=== PATIENT | female | born 1985 | race Caucasian/White ===

== ENCOUNTER 2017-09-24 19:21 | Emergency (ER) | payer MEDICAID ==
[~2017-09-24] VITALS: Ht 167.6 cm; Wt 127.0 kg
[~2017-09-24 19:21] MED LIST: BUPR1FIL3 SL; DIVA-81 PO; LURA40TA3 PO; QUET300T2 PO
[2017-09-24] MEDS ORDERED: PRAZ1CAP5 PO (19:57)
[2017-09-24 20:13] LABS: BASOPHILS # (AUTO) 0.1 X10'3 (0-0.2); BASOPHILS % (AUTO) 0.5 % (0-1); EOSINOPHILS # (AUTO) 0.4 X10'3 (0-0.9); HEMATOCRIT 42.5 % (35.0-45.0); HEMOGLOBIN 14.3 g/dl (12.0-16.0); LYMPHOCYTES # (AUTO) 3.1 X10'3 (1.1-4.8); LYMPHOCYTES % (AUTO) 26.6 % (21-51); MEAN CORPUSCULAR HEMOGLOBIN 30.3 PG (27.0-31.0); MEAN CORPUSCULAR HGB CONC 33.6 % (33.0-36.5); MEAN CORPUSCULAR VOLUME 90.2 FL (78-98); MEAN PLATELET VOLUME 8.8 FL (7.4-10.4); MONOCYTES # (AUTO) 0.8 X10'3 (0-0.9); MONOCYTES % (AUTO) 6.5 % (2-12); NEUTROPHILS # (AUTO) 7.5 X10'3 (1.8-7.7); NEUTROPHILS % (AUTO) 63.4 % (42-75); PLATELET COUNT 323 X10'3 (140-440); RED BLOOD COUNT 4.71 X10'6 (4.20-5.60); RED CELL DISTRIBUTION WIDTH 16.6 % (11.5-14.5); WHITE BLOOD COUNT 11.8 X10'3 (4.5-11.0)
[2017-09-24 20:27] LABS: ALANINE AMINOTRANSFERASE 41 U/L (12-78); ALBUMIN 3.5 G/DL (3.4-5.0); ALKALINE PHOSPHATASE 79 IU/L (46-116); ANION GAP 6 (8-16); ASPARTATE AMINO TRANSFERASE 24 U/L (10-37); BILIRUBIN,TOTAL 0.3 MG/DL (0.1-1.0); BLOOD UREA NITROGEN 8 MG/DL (7-18); BUN/CREATININE RATIO 10.8 (6.6-38.0); CALCIUM 9.1 MG/DL (8.5-10.1); CHLORIDE 108 MMOL/L (99-107); CREATININE 0.74 MG/DL (0.40-0.90); GLUCOSE 99 MG/DL (70-104); POTASSIUM 3.7 MMOL/L (3.5-5.1); SODIUM 140 MMOL/L (135-145); TOTAL CARBON DIOXIDE 26.4 MMOL/L (24-32); eGFR 90 ML/MIN
[2017-09-24 20:38] LABS: ETHANOL < 0.010 GM/DL (0.0-0.010)
[2017-09-24 20:48] LABS: URINE AMPHETAMINE SCREEN NEGATIVE (Neg); URINE BARBITUATE SCREEN NEGATIVE (Neg); URINE BENZODIAZEPINES SCREEN NEGATIVE (Neg); URINE CANNABINOID SCREEN POSITIVE (Neg); URINE COCAINE SCREEN NEGATIVE (Neg); URINE METHADONE SCREEN NEGATIVE (Neg); URINE OPIATE SCREEN NEGATIVE (Neg); URINE PHENCYCLIDINE SCREEN NEGATIVE (Neg)
[2017-09-24] MEDS ORDERED: divalproex sodium 250mg tablet PO ONE ×2 (20:50→21:30)
[2017-09-24] MEDS ORDERED: DIVA500T4 PO (20:50)
[2017-09-24] MEDS ORDERED: lurasidone 20mg tablet PO SCH (21:00)
[2017-09-24 21:10] LABS: URINE HCG NEGATIVE (NEG)
[2017-09-24 21:18] LABS: VALPROATE < 3.0 UG/ML (50-100)
[2017-09-24] MEDS: prazosin 1mg capsule PO SCH (21:51)
[2017-09-25] MEDS ORDERED: ziprasidone IM 20mg inj **IM only IM ONE (01:40)
[2017-09-25] MEDS ORDERED: divalproex sodium 250mg tablet PO ONE (08:00)
[2017-09-25] MEDS ORDERED: buprenorphine/naloxone 8MG-2MG SUBlingual film SL SCH ×2 (08:00→09:01)
[2017-09-25] MEDS: divalproex sod 250mg ER (24-hour) tablet PO SCH (09:01)
[2017-09-25] MEDS: buprenorphine/naloxone 8MG-2MG SUBlingual film SL SCH ×2 (09:01→16:05)
[2017-09-25] MEDS ORDERED: nicotine 14mg patch - 24hr TD ONE (09:55)
[2017-09-25 13:54] LABS: CLARITY,URINE CLEAR (Clear); COLOR,URINE YELLOW (Yellow); GLUCOSE, URINE NEGATIVE (Neg); KETONES,URINE TRACE mg/dl (Neg); LEUKOCYTE ESTERASE ,URINE NEGATIVE (Neg); NITRITES, URINE NEGATIVE (Neg); OCCULT BLOOD,URINE NEGATIVE (Neg); PH,URINE 7.5 (4.8-8.0); PROTEIN,URINE NEGATIVE (Neg)
[2017-09-25 13:59] LABS: UA COLLECTION TYPE CLN CATCH MIDSTREAM
[2017-09-25] MEDS: prazosin 1mg capsule PO SCH (21:14)
[2017-09-25] MEDS: LATUDA 40 MG PO SCH (21:14)
[2017-09-26] MEDS: buprenorphine/naloxone 8MG-2MG SUBlingual film SL SCH ×3 (00:02→16:35)
[2017-09-26] MEDS: divalproex sod 250mg ER (24-hour) tablet PO SCH (07:43)
[2017-09-26] MEDS ORDERED: nicotine 14mg patch - 24hr TD ONE (10:20)
[2017-09-26] MEDS: prazosin 1mg capsule PO SCH (20:56)
[2017-09-26] MEDS: LATUDA 40 MG PO SCH (20:57)
[2017-09-27] MEDS: buprenorphine/naloxone 8MG-2MG SUBlingual film SL SCH ×3 (08:00→14:57)
[2017-09-27] MEDS: divalproex sod 250mg ER (24-hour) tablet PO SCH (08:28)
[2017-09-27] MEDS: nicotine 21mg patch - 24 hr TD ONE ×2 (10:08→10:09)
[2017-09-27] MEDS ORDERED: LORazepam 2 mg/ml vial IM ONE (13:55)
[2017-09-27] MEDS ORDERED: LORazepam 2 mg/ml vial IM PRN (14:05)
[2017-09-27] MEDS: prazosin 1mg capsule PO SCH (21:21)
[2017-09-27] MEDS: LATUDA 40 MG PO SCH (21:22)
[2017-09-28] MEDS: buprenorphine/naloxone 8MG-2MG SUBlingual film SL SCH ×3 (08:00→16:00)
[2017-09-28] MEDS: divalproex sod 250mg ER (24-hour) tablet PO SCH (08:20)
[2017-09-28] MEDS: prazosin 1mg capsule PO SCH (20:49)
[2017-09-28] MEDS: LATUDA 20 MG PO SCH (20:50)
[2017-09-29] MEDS ORDERED: nicotine 21mg patch - 24 hr TD ONE (00:15)
[2017-09-29] MEDS: buprenorphine/naloxone 8MG-2MG SUBlingual film SL SCH ×2 (08:00)
[2017-09-29] MEDS: divalproex sod 250mg ER (24-hour) tablet PO SCH ×2 (08:22→21:51)
[2017-09-29] MEDS ORDERED: ibuprofen tablet 400 MG TABLET PO ONE (09:00)
[2017-09-29] MEDS: ibuprofen tablet 400 MG TABLET PO PRN ×2 (12:47→21:53)
[2017-09-29] MEDS: LATUDA 20 MG PO SCH (21:00)
[2017-09-29] MEDS: prazosin 1mg capsule PO SCH (21:51)
[2017-09-29] MEDS ORDERED: ondansetron 4mg rapidly disintigrating tab PO ONE (22:55)
[2017-09-30] MEDS: ibuprofen tablet 400 MG TABLET PO PRN (10:44)
[2017-09-30] MEDS ORDERED: DIVA500T9 PO (16:16)
[2017-09-30 16:24] VITALS: BP 116/74
== END 2017-09-30 16:26 | disposition home or self-care (01) ==
LOC: ER 19:22
DX: F29 Unspecified psychosis not due to a substance or known physiological condition (principal); F32.9 Major depressive disorder, single episode, unspecified; F20.9 Schizophrenia, unspecified; F12.10 Cannabis abuse, uncomplicated; F15.10 Other stimulant abuse, uncomplicated; F41.9 Anxiety disorder, unspecified; M19.90 Unspecified osteoarthritis, unspecified site; Z79.899 Other long term (current) drug therapy; Z88.0 Allergy status to penicillin
CPT/HCPCS: 36415; 80053; 80164; 80305; 80320; 81003; 81025; 84443; 85025; 96372; 99284; J3486

== ENCOUNTER 2017-10-05 13:35 | Emergency (ER) | payer MEDICAID ==
[~2017-10-05] VITALS: Ht 185550.7 cm; Wt 95.5 kg
[~2017-10-05 13:35] MED LIST changes: -DIVA-81 PO; +DIVA500T4 PO; +DIVA500T9 PO; +PRAZ1CAP5 PO; -QUET300T2 PO
[2017-10-05 15:10] LABS: BASOPHILS # (AUTO) 0.3 X10'3 (0-0.2); BASOPHILS % (AUTO) 1.6 % (0-1); EOSINOPHILS # (AUTO) 0.1 X10'3 (0-0.9); EOSINOPHILS % (AUTO) 0.8 % (0-6); HEMATOCRIT 46.8 % (35.0-45.0); HEMOGLOBIN 15.9 g/dl (12.0-16.0); LYMPHOCYTES % (AUTO) 17.2 % (21-51); MEAN CORPUSCULAR HEMOGLOBIN 30.3 PG (27.0-31.0); MEAN CORPUSCULAR HGB CONC 33.9 % (33.0-36.5); MEAN CORPUSCULAR VOLUME 89.4 FL (78-98); MEAN PLATELET VOLUME 8.9 FL (7.4-10.4); MONOCYTES % (AUTO) 5.8 % (2-12); NEUTROPHILS % (AUTO) 74.6 % (42-75); PLATELET COUNT 443 X10'3 (140-440); RED BLOOD COUNT 5.23 X10'6 (4.20-5.60); RED CELL DISTRIBUTION WIDTH 14.7 % (11.5-14.5); WHITE BLOOD COUNT 17.4 X10'3 (4.5-11.0)
[2017-10-05 15:26] LABS: ALANINE AMINOTRANSFERASE 30 U/L (12-78); ALKALINE PHOSPHATASE 107 IU/L (46-116); ANION GAP 11 (8-16); ASPARTATE AMINO TRANSFERASE 12 U/L (10-37); BILIRUBIN,TOTAL 0.5 MG/DL (0.1-1.0); BLOOD UREA NITROGEN 10 MG/DL (7-18); BUN/CREATININE RATIO 14.3 (6.6-38.0); CALCIUM 9.8 MG/DL (8.5-10.1); CHLORIDE 104 MMOL/L (99-107); ETHANOL < 0.010 GM/DL (0.0-0.010); GLUCOSE 108 MG/DL (70-104); POTASSIUM 3.8 MMOL/L (3.5-5.1); SODIUM 139 MMOL/L (135-145); TOTAL CARBON DIOXIDE 24.3 MMOL/L (24-32); TOTAL PROTEIN 8.2 G/DL (6.4-8.2); eGFR > 90 ML/MIN
[2017-10-05] MEDS ORDERED: LORazepam 2 mg/ml vial IM ONE ×2 (17:35→20:55)
[2017-10-05] MEDS ORDERED: haloperidol lactate 5mg/ml inj IM ONE ×2 (17:35→20:55)
[2017-10-05] MEDS ORDERED: diphenhydrAMINE 50 mg/ml inj IM ONE ×2 (17:35→20:55)
[2017-10-05] MEDS: quetiapine 100mg tablet PO SCH ×2 (21:50→23:05)
[2017-10-05] MEDS ORDERED: nicotine 14mg patch - 24hr TD ONE (21:50)
[2017-10-06 07:56] LABS: CLARITY,URINE CLOUDY (Clear); COLOR,URINE YELLOW (Yellow); GLUCOSE, URINE NEGATIVE (Neg); KETONES,URINE TRACE mg/dl (Neg); LEUKOCYTE ESTERASE ,URINE NEGATIVE (Neg); NITRITES, URINE NEGATIVE (Neg); OCCULT BLOOD,URINE LARGE (Neg); PROTEIN,URINE TRACE mg/dl (Neg); UA COLLECTION TYPE VOIDED; UROBILINOGEN,URINE 0.2 E.U/dL (0.2-1.0)
[2017-10-06 07:57] LABS: URINE HCG NEGATIVE (NEG)
[2017-10-06 08:17] LABS: URINE AMPHETAMINE SCREEN NEGATIVE (Neg); URINE BARBITUATE SCREEN NEGATIVE (Neg); URINE BENZODIAZEPINES SCREEN NEGATIVE (Neg); URINE CANNABINOID SCREEN POSITIVE (Neg); URINE COCAINE SCREEN NEGATIVE (Neg); URINE METHADONE SCREEN NEGATIVE (Neg); URINE OPIATE SCREEN NEGATIVE (Neg); URINE PHENCYCLIDINE SCREEN NEGATIVE (Neg); WBC,URINE 0-4 /HPF (0-4)
[2017-10-06 08:18] LABS: BACTERIA,URINE NONE SEEN /HPF (Neg); MUCUS STRANDS MANY /LPF (Neg); RBC,URINE 50-100 /HPF (0-2); SQUAMOUS EPITHELIAL CELL,UR FEW /LPF (FEW)
[2017-10-06] MEDS ORDERED: INVEGA SUSTENA IM (08:18)
[2017-10-06 08:19] LABS: HYALINE CASTS 0-3 /LPF (NEGATIVE)
[2017-10-06] MEDS ORDERED: haloperidol 1mg tablet PO PRN (09:45)
[2017-10-06] MEDS: divalproex sod 250mg ER (24-hour) tablet PO SCH (10:01)
[2017-10-06] MEDS ORDERED: haloperidol 5mg tablet PO ONE (12:45)
[2017-10-06] MEDS ORDERED: LORazepam 1 MG tablet PO ONE (12:45)
[2017-10-06] MEDS ORDERED: diphenhydrAMINE 25mg capsule PO ONE ×2 (12:45→20:00)
[2017-10-06 13:08] LABS: BASOPHILS # (AUTO) 0.1 X10'3 (0-0.2); BASOPHILS % (AUTO) 0.4 % (0-1); EOSINOPHILS # (AUTO) 0.1 X10'3 (0-0.9); EOSINOPHILS % (AUTO) 0.6 % (0-6); HEMATOCRIT 44.3 % (35.0-45.0); HEMOGLOBIN 15.5 g/dl (12.0-16.0); LYMPHOCYTES # (AUTO) 2.7 X10'3 (1.1-4.8); LYMPHOCYTES % (AUTO) 16.6 % (21-51); MEAN CORPUSCULAR HEMOGLOBIN 30.9 PG (27.0-31.0); MEAN CORPUSCULAR VOLUME 88.1 FL (78-98); MEAN PLATELET VOLUME 8.6 FL (7.4-10.4); MONOCYTES # (AUTO) 0.6 X10'3 (0-0.9); MONOCYTES % (AUTO) 3.7 % (2-12); NEUTROPHILS # (AUTO) 12.6 X10'3 (1.8-7.7); NEUTROPHILS % (AUTO) 78.7 % (42-75); PLATELET COUNT 373 X10'3 (140-440); RED BLOOD COUNT 5.03 X10'6 (4.20-5.60); RED CELL DISTRIBUTION WIDTH 15.5 % (11.5-14.5)
[2017-10-06 14:21] LABS: TOTAL CELLS COUNTED 100
[2017-10-06 14:22] LABS: PLATELET ESTIMATE NORMAL
[2017-10-06 14:23] LABS: TOXIC GRANULATION 3+; TOXIC VACUOLATION FEW
[2017-10-06] MEDS: haloperidol 5mg tablet PO SCH (19:08)
[2017-10-06] MEDS: LORazepam 1 MG tablet PO SCH (19:09)
[2017-10-06] MEDS ORDERED: diphenhydrAMINE 50 mg/ml inj IM ONE (19:50)
[2017-10-07] MEDS: haloperidol 5mg tablet PO SCH (08:00)
[2017-10-07] MEDS: LORazepam 1 MG tablet PO SCH (08:09)
[2017-10-07] MEDS: divalproex sod 250mg ER (24-hour) tablet PO SCH (08:10)
[2017-10-07] MEDS ORDERED: divalproex sod 250mg ER (24-hour) tablet PO SCH (08:30)
[2017-10-07] MEDS ORDERED: diphenhydrAMINE 50 mg/ml inj IM ONE (12:45)
[2017-10-07 18:25] VITALS: BP 145/86
== END 2017-10-07 18:27 ==
LOC: ER 13:35
DX: F30.9 Manic episode, unspecified (principal); F20.9 Schizophrenia, unspecified; M19.90 Unspecified osteoarthritis, unspecified site; F12.10 Cannabis abuse, uncomplicated; F15.10 Other stimulant abuse, uncomplicated; Z88.0 Allergy status to penicillin; Z79.899 Other long term (current) drug therapy
CPT/HCPCS: 36415; 80053; 80305; 80320; 81001; 81025; 84443; 85025; 96372; 99291; 99292; J1200; J1630; J2060; Q0163

== ENCOUNTER 2020-12-04 16:41 | Emergency (ER) | payer MEDICAID ==
[~2020-12-04] VITALS: Ht 167.6 cm; Wt 136.4 kg
[~2020-12-04 16:41] MED LIST changes: -BUPR1FIL3 SL; -DIVA500T4 PO; -DIVA500T9 PO; +INVEGA SUSTENA IM; -PRAZ1CAP5 PO
[2020-12-04] MEDS ORDERED: BUPR1FIL3 SL (17:41)
[2020-12-04 17:58] LABS: BASOPHILS # (AUTO) 0.1 X10'3 (0-0.2); BASOPHILS % (AUTO) 0.4 % (0-1); EOSINOPHILS # (AUTO) 0.1 X10'3 (0-0.9); EOSINOPHILS % (AUTO) 0.5 % (0-6); HEMATOCRIT 43.6 % (35.0-45.0); HEMOGLOBIN 14.1 g/dl (12.0-16.0); LYMPHOCYTES # (AUTO) 2.2 X10'3 (1.1-4.8); LYMPHOCYTES % (AUTO) 12.9 % (21-51); MEAN CORPUSCULAR HEMOGLOBIN 28.5 PG (27.0-31.0); MEAN CORPUSCULAR HGB CONC 32.3 g/dL (33.0-36.5); MEAN CORPUSCULAR VOLUME 88.3 FL (78-98); MEAN PLATELET VOLUME 7.7 FL (7.4-10.4); MONOCYTES # (AUTO) 1.1 X10'3 (0-0.9); MONOCYTES % (AUTO) 6.7 % (2-12); NEUTROPHILS # (AUTO) 13.5 X10'3 (1.8-7.7); NEUTROPHILS % (AUTO) 79.5 % (42-75); PLATELET COUNT 431 X10'3 (140-440); RED BLOOD COUNT 4.94 X10'6 (4.20-5.60); RED CELL DISTRIBUTION WIDTH 15.4 % (11.5-14.5)
[2020-12-04 18:03] LABS: CLARITY,URINE CLEAR (Clear); COLOR,URINE YELLOW (Yellow); GLUCOSE, URINE NEGATIVE (Neg); KETONES,URINE NEGATIVE (Neg); LEUKOCYTE ESTERASE ,URINE NEGATIVE (Neg); NITRITES, URINE NEGATIVE (Neg); OCCULT BLOOD,URINE NEGATIVE (Neg); PROTEIN,URINE NEGATIVE (Neg); UROBILINOGEN,URINE 0.2 E.U/dL (0.2-1.0)
[2020-12-04 18:04] LABS: UA COLLECTION TYPE CLN CATCH MIDSTREAM
[2020-12-04 18:10] LABS: ALANINE AMINOTRANSFERASE 22 U/L (12-78); ALBUMIN 3.7 G/DL (3.4-5.0); ALBUMIN/GLOBULIN RATIO 0.9 (1.1-1.5); ALKALINE PHOSPHATASE 100 IU/L (46-116); ANION GAP 12 (8-16); ASPARTATE AMINO TRANSFERASE 14 U/L (10-37); BILIRUBIN,TOTAL 0.2 MG/DL (0.1-1.0); BLOOD UREA NITROGEN 6 MG/DL (7-18); BUN/CREATININE RATIO 6.8 (6.6-38.0); CALCIUM 9.7 MG/DL (8.5-10.1); CHLORIDE 103 MMOL/L (99-107); CREATININE 0.88 MG/DL (0.40-0.90); GLUCOSE 126 MG/DL (70-104); POTASSIUM 3.7 MMOL/L (3.5-5.1); SODIUM 139 MMOL/L (135-145); TOTAL CARBON DIOXIDE 24.2 MMOL/L (24-32); eGFR 72 ML/MIN
[2020-12-04 18:10] LABS: URINE AMPHETAMINE SCREEN NEGATIVE (Neg); URINE BARBITUATE SCREEN NEGATIVE (Neg); URINE BENZODIAZEPINES SCREEN NEGATIVE (Neg); URINE CANNABINOID SCREEN NEGATIVE (Neg); URINE COCAINE SCREEN NEGATIVE (Neg); URINE METHADONE SCREEN NEGATIVE (Neg); URINE OPIATE SCREEN NEGATIVE (Neg); URINE PHENCYCLIDINE SCREEN NEGATIVE (Neg)
[2020-12-04 18:12] LABS: URINE HCG NEGATIVE (NEG)
[2020-12-04 18:19] LABS: ETHANOL < 0.010 GM/DL (0.0-0.010)
--- NOTE | 2020-12-05 00:42 | NUR ---
Pt brought back to ER overflow. Pt requests coloring supplies, given crayons and paper.
[2020-12-05] MEDS ORDERED: traZODone 50mg tablet PO ONE (01:40)
--- NOTE | 2020-12-05 02:00 | NUR ---
PT is having trouble sleeping, requests sleeping med. Physician consulted, 50mg trazodone PO given
--- NOTE | 2020-12-05 03:00 | NUR ---
Pt sitting up reading a book
--- NOTE | 2020-12-05 05:35 | NUR ---
PT is sleeping on R side, RR WNL
--- NOTE | 2020-12-05 06:25 | NUR ---
PT AWAKE READING A BOOK. NO NEEDS AT THIS TIME
[2020-12-05] MEDS ORDERED: buprenorphine/naloxone 8MG-2MG SUBlingual film SL SCH (08:00)
--- NOTE | 2020-12-05 09:42 | NUR ---
PT RESTING ON RIGHT SIDE RR EQUAL AND UNLABORED.
--- NOTE | 2020-12-05 11:30 | NUR ---
COVID SWAB DONE.
--- NOTE | 2020-12-05 12:08 | NUR ---
PT CONTINUES RESTING ON RIGHT SIDE RR EQUAL AND UNLABORED.
--- NOTE | 2020-12-05 13:10 | NUR ---
Patient eating lunch. No distress observed. Continue to monitor.
--- NOTE | 2020-12-05 14:18 | NUR ---
PT RESTING ON RIGHT SIDE RR EQUAL AND UNLABORED
--- NOTE | 2020-12-05 15:39 | NUR ---
Patient speaking to mother on the phone. No distress observed. Continue to monitor.
--- NOTE | 2020-12-05 16:55 | NUR ---
Mother came to visit patient and brought markers and books. No distress observed during their visit. Continue to monitor.
--- NOTE | 2020-12-05 18:30 | NUR ---
The patient eating her dinner at the bedside
--- NOTE | 2020-12-05 19:56 | NUR ---
The patient is on her bed. Attempted to engage one to one but the patient kept her eyes closed and have minimal replies. She was reminded that she will be discharged to [facility] possibly tonight or in the AM.
[2020-12-05 21:10] VITALS: BP 145/71
[2020-12-06] MEDS ORDERED: INVEGA SUSTENNA 156 MG IM SCH (08:00)
[2020-12-06] MEDS ORDERED: nicotine 21mg patch - 24 hr TD SCH (08:00)
== END 2020-12-05 21:12 ==
LOC: ER 16:41
DX: D72.829 Elevated white blood cell count, unspecified (principal); F20.9 Schizophrenia, unspecified; Z20.822 Contact with and (suspected) exposure to COVID-19; M19.90 Unspecified osteoarthritis, unspecified site; F32.9 Major depressive disorder, single episode, unspecified; F12.90 Cannabis use, unspecified, uncomplicated; F15.90 Other stimulant use, unspecified, uncomplicated; Z98.890 Other specified postprocedural states; Z88.0 Allergy status to penicillin; Z88.8 Allergy status to other drugs, medicaments and biological substances; Z79.899 Other long term (current) drug therapy
CPT/HCPCS: 36415; 80053; 80305; 80320; 81003; 81025; 84443; 85025; 87635; 99285; C9803

== ENCOUNTER 2024-06-02 15:50 | Inpatient (IN) | payer MEDICAID ==
[~2024-06-02] VITALS: Ht 167.6 cm; Wt 138.4 kg
[~2024-06-02 15:50] MED LIST changes: +BUPR1FIL3 SL; -LURA40TA3 PO
[2024-06-02] MEDS ORDERED: LISI20TA28 PO (16:18)
[2024-06-02] MEDS ORDERED: PALI6TAB6 PO (16:18)
[2024-06-02] MEDS ORDERED: HYDR50TA65 PO (16:18)
[2024-06-02 17:15] LABS: URINE AMPHETAMINE SCREEN NEGATIVE (Neg); URINE BARBITUATE SCREEN NEGATIVE (Neg); URINE BENZODIAZEPINES SCREEN NEGATIVE (Neg); URINE CANNABINOID SCREEN NEGATIVE (Neg); URINE COCAINE SCREEN NEGATIVE (Neg); URINE METHADONE SCREEN NEGATIVE (Neg); URINE OPIATE SCREEN NEGATIVE (Neg); URINE PHENCYCLIDINE SCREEN NEGATIVE (Neg)
[2024-06-02] MEDS: normal saline 1000ML IV soln IVB ONE (17:15)
[2024-06-02] MEDS ORDERED: haloperidol lactate 5mg/ml inj IM ONE (17:25)
[2024-06-02] MEDS: LORazepam 2 mg/ml vial IM ONE (17:25)
[2024-06-02] MEDS: diphenhydrAMINE 50 mg/ml inj IM ONE (17:25)
[2024-06-02] MEDS: ziprasidone IM 20mg inj **IM only IM ONE (17:45)
[2024-06-02 17:53] LABS: BASOPHILS # (AUTO) 0.1 X10'3 (0-0.2); BASOPHILS % (AUTO) 0.3 % (0-1); EOSINOPHILS # (AUTO) 0.2 X10'3 (0-0.9); EOSINOPHILS % (AUTO) 0.9 % (0-6); HEMATOCRIT 43.8 % (35.0-45.0); HEMOGLOBIN 14.8 g/dl (12.0-16.0); LYMPHOCYTES # (AUTO) 3.4 X10'3 (1.1-4.8); LYMPHOCYTES % (AUTO) 15.7 % (21-51); MEAN CORPUSCULAR HEMOGLOBIN 30.5 PG (27.0-31.0); MEAN CORPUSCULAR HGB CONC 33.8 g/dL (33.0-36.5); MEAN PLATELET VOLUME 8.1 FL (7.4-10.4); MONOCYTES # (AUTO) 0.9 X10'3 (0-0.9); NEUTROPHILS # (AUTO) 17.1 X10'3 (1.8-7.7); NEUTROPHILS % (AUTO) 79.1 % (42-75); PLATELET COUNT 448 X10'3 (140-440); RED BLOOD COUNT 4.86 X10'6 (4.20-5.60); RED CELL DISTRIBUTION WIDTH 14.5 % (11.5-14.5); WHITE BLOOD COUNT 21.6 X10'3 (4.5-11.0)
[2024-06-02 17:59] LABS: ALBUMIN 3.4 G/DL (3.4-5.0); ANION GAP 9 (8-16); BLOOD UREA NITROGEN 10 MG/DL (7-18); BUN/CREATININE RATIO 14.9 (10.0-20.0); CALCIUM 9.1 MG/DL (8.5-10.1); CHLORIDE 104 MMOL/L (99-107); CREATININE 0.67 MG/DL (0.40-0.90); GLUCOSE 248 MG/DL (70-104); POTASSIUM 4.1 MMOL/L (3.5-5.1); SODIUM 140 MMOL/L (135-145); TOTAL CARBON DIOXIDE 26.7 MMOL/L (24-32); eCRCL 104 ML/MIN; eGFR > 90 ML/MIN
[2024-06-02 18:35] LABS: COLOR,URINE RED (Yellow)
[2024-06-02] MEDS: hyDRALAzine 10mg tablet PO SCH (18:35)
[2024-06-02 18:38] LABS: CLARITY,URINE BLOODY (Clear); UA COLLECTION TYPE VOIDED
[2024-06-02 18:42] LABS: SQUAMOUS EPITHELIAL CELL,UR MANY /LPF (FEW)
[2024-06-02 18:43] LABS: BACTERIA,URINE FEW /HPF (Neg)
[2024-06-02 18:44] LABS: RBC,URINE TNTC /HPF (0-2)
[2024-06-02] MEDS ORDERED: sulfamethoxazole/trimethoprim DS (800/160mg) tablet PO SCH (19:00)
[2024-06-02 20:51] LABS: PLATELET ESTIMATE NORMAL; TOTAL CELLS COUNTED 100
[2024-06-02 20:52] LABS: SMUDGE CELLS FEW
[2024-06-02] MEDS: nicotine 21mg patch - 24 hr TD ONE (23:58)
[2024-06-02] MEDS: sulfamethoxazole/trimethoprim DS (800/160mg) tablet PO SCH (23:59)
[2024-06-02] MEDS: ketorolac trometh 30MG/ML vial 30 MG/ML VIAL IM ONE (23:59)
[2024-06-03] MEDS: lisinopril 20mg tablet PO SCH (08:19)
[2024-06-03] MEDS: buprenorphine/naloxone 8MG-2MG SUBlingual film SL SCH (08:19)
[2024-06-03] MEDS: PALIPERIDONE 3 MG TAB.ER.24 PO SCH (08:20)
[2024-06-05 05:44] VITALS: RESP 18; O2SAT 97
[2024-06-05 06:00] VITALS: BP 131/95; PULSE 106; TEMP 97.1; O2SAT 96
[2024-06-05 07:00] VITALS: RESP 18; O2SAT 95
[2024-06-05] MEDS: divalproex 250mg tablet, delayed-release PO SCH (07:12)
[2024-06-05 08:00] VITALS: BP 107/64; PULSE 93; RESP 18; TEMP 97.7; O2SAT 95
[2024-06-05] MEDS: divalproex sodium 500mg tablet.DR PO SCH (11:58)
[2024-06-05 20:00] VITALS: BP 105/64; PULSE 94; RESP 18; TEMP 97.4; O2SAT 96
[2024-06-06] MEDS ORDERED: acetaminophen 325mg tablet PO PRN (03:45)
[2024-06-06] MEDS ORDERED: mag hydrox/Alum hydrox/simeth 30ml oral suspension PO PRN (03:45)
[2024-06-06] MEDS ORDERED: loperamide 2mg capsule PO PRN (03:45)
[2024-06-06 07:00] VITALS: RESP 16; O2SAT 95
[2024-06-06 08:00] VITALS: BP 155/81; PULSE 89; RESP 16; TEMP 98; O2SAT 95
[2024-06-06] MEDS: nicotine 21mg patch - 24 hr TD SCH (08:13)
[2024-06-06] MEDS: magnesium hydroxide 30ml (MOM) UD suspension PO PRN (08:14)
[2024-06-06 10:32] LABS: ALANINE AMINOTRANSFERASE 47 U/L (12-78); ALBUMIN 3.3 G/DL (3.4-5.0); ALBUMIN/GLOBULIN RATIO 0.8 (1.1-1.5); ALKALINE PHOSPHATASE 104 IU/L (46-116); ANION GAP 7 (8-16); ASPARTATE AMINO TRANSFERASE 18 U/L (10-37); BILIRUBIN,TOTAL 0.5 MG/DL (0.1-1.0); BLOOD UREA NITROGEN 9 MG/DL (7-18); BUN/CREATININE RATIO 14.3 (10.0-20.0); CALCIUM 9.2 MG/DL (8.5-10.1); CHLORIDE 103 MMOL/L (99-107); CREATININE 0.63 MG/DL (0.40-0.90); GLUCOSE 208 MG/DL (70-104); SODIUM 137 MMOL/L (135-145); THYROID STIMULATING HORMONE 0.49 ulU/ml (0.34-4.50); TOTAL CARBON DIOXIDE 27.5 MMOL/L (24-32); TOTAL PROTEIN 7.4 G/DL (6.4-8.2); eCRCL 111 ML/MIN; eGFR > 90 ML/MIN
[2024-06-06 15:06] VITALS: BP 131/84; PULSE 121
[2024-06-06] MEDS: hydrOXYzine 25 MG tablet PO PRN (15:17)
[2024-06-06 19:00] VITALS: BP 147/91; PULSE 118; RESP 18; TEMP 97.6; O2SAT 96
[2024-06-06] MEDS: OLANZapine 5mg rapidly disint. tablet PO SCH (20:51)
[2024-06-07 07:30] VITALS: BP 159/89; PULSE 81; RESP 16; TEMP 97.3; O2SAT 99
[2024-06-07 08:45] VITALS: RESP 16; O2SAT 99
[2024-06-07 09:22] LABS: BASOPHILS # (AUTO) 0.1 X10'3 (0-0.2); BASOPHILS % (AUTO) 0.6 % (0-1); EOSINOPHILS # (AUTO) 0.2 X10'3 (0-0.9); EOSINOPHILS % (AUTO) 1.9 % (0-6); HEMATOCRIT 47.5 % (35.0-45.0); HEMOGLOBIN 15.7 g/dl (12.0-16.0); LYMPHOCYTES # (AUTO) 4.8 X10'3 (1.1-4.8); LYMPHOCYTES % (AUTO) 37.3 % (21-51); MEAN CORPUSCULAR HEMOGLOBIN 29.9 PG (27.0-31.0); MEAN CORPUSCULAR HGB CONC 33.1 g/dL (33.0-36.5); MEAN CORPUSCULAR VOLUME 90.2 FL (78-98); MEAN PLATELET VOLUME 8.1 FL (7.4-10.4); MONOCYTES # (AUTO) 0.9 X10'3 (0-0.9); MONOCYTES % (AUTO) 7.3 % (2-12); NEUTROPHILS # (AUTO) 6.8 X10'3 (1.8-7.7); NEUTROPHILS % (AUTO) 52.9 % (42-75); PLATELET COUNT 392 X10'3 (140-440); RED BLOOD COUNT 5.26 X10'6 (4.20-5.60); RED CELL DISTRIBUTION WIDTH 14.5 % (11.5-14.5); WHITE BLOOD COUNT 12.9 X10'3 (4.5-11.0)
[2024-06-07 09:46] LABS: CHOL/HDL RATIO 5.7 (0.00-4.99); CHOLESTEROL 188 MG/DL (0-200); HDL CHOLESTEROL 33 MG/DL (35-60); LDL CHOLESTEROL 125 MG/DL (50-100); TRIGLYCERIDES 148 MG/DL (20-135)
[2024-06-07 11:00] LABS: HEMOGLOBIN A1C 8.1 % (4.5-6.2)
[2024-06-07] MEDS: metFORMIN 500mg tablet PO SCH (16:41)
[2024-06-07 19:00] VITALS: RESP 18; O2SAT 93
[2024-06-07 20:00] VITALS: BP 111/54; PULSE 103; RESP 18; TEMP 97.9; O2SAT 93
[2024-06-08] MEDS: atorvastatin 20mg tablet PO SCH (07:24)
[2024-06-08 07:30] VITALS: BP 137/71; PULSE 80; RESP 16; TEMP 97.6; O2SAT 97
[2024-06-08] MEDS: acetaminophen 325mg tablet PO PRN (07:32)
[2024-06-08 07:59] VITALS: RESP 16; O2SAT 97
[2024-06-08 16:07] VITALS: BP 125/67; PULSE 93
[2024-06-08 19:00] VITALS: RESP 18; O2SAT 92
[2024-06-08 20:00] VITALS: BP 121/84; PULSE 92; RESP 16; TEMP 97.3; O2SAT 96
[2024-06-08] MEDS: OLANZapine 5mg rapidly disint. tablet PO SCH (21:07)
[2024-06-09 08:00] VITALS: BP 145/80; PULSE 88; RESP 12; TEMP 97.4; O2SAT 98
[2024-06-09] MEDS: OLANZapine 5mg rapidly disint. tablet PO ONE (12:09)
[2024-06-09 19:00] VITALS: RESP 15; O2SAT 98
[2024-06-09 19:50] VITALS: BP 127/73; PULSE 115; RESP 15; TEMP 97.8; O2SAT 98
[2024-06-09] MEDS: NICOTINE POLACRILEX 2 MG LOZENGE BC PRN (20:06)
[2024-06-10 07:00] VITALS: BP 134/89; PULSE 71; RESP 14; TEMP 97.7; O2SAT 99
[2024-06-10 19:00] VITALS: BP 127/76; PULSE 71; RESP 14; TEMP 97.7; O2SAT 99
[2024-06-11 07:00] VITALS: RESP 16; O2SAT 96
[2024-06-11 08:00] VITALS: BP 131/71; PULSE 89; RESP 16; TEMP 97.9; O2SAT 96
[2024-06-11 19:00] VITALS: BP 129/81; PULSE 114; RESP 18; TEMP 97.9; O2SAT 96
[2024-06-11] MEDS: OLANZapine 5mg rapidly disint. tablet PO SCH (21:03)
[2024-06-12 07:01] VITALS: BP 158/77; PULSE 91; RESP 17; TEMP 98.8; O2SAT 92
[2024-06-12 19:00] VITALS: BP 128/77; PULSE 86; RESP 16; TEMP 97.9; O2SAT 100
[2024-06-13 07:30] VITALS: BP 142/83; PULSE 86; RESP 16; TEMP 96.5; O2SAT 98
[2024-06-13 17:02] VITALS: BP 139/76; PULSE 95
[2024-06-13 19:00] VITALS: BP 136/76; PULSE 87; RESP 18; TEMP 98.2; O2SAT 94; O2SAT 96
[2024-06-13] MEDS: OLANZapine 5mg rapidly disint. tablet PO SCH (21:00)
[2024-06-13] MEDS ORDERED: OLANZapine 5mg rapidly disint. tablet PO SCH (21:00)
[2024-06-14 07:00] VITALS: RESP 20; O2SAT 96
[2024-06-14 08:00] VITALS: BP 120/73; PULSE 86; RESP 20; TEMP 97.4; O2SAT 96
[2024-06-14] MEDS ORDERED: PALIPERIDONE 3 MG TAB.ER.24 PO SCH (08:00)
[2024-06-14 19:16] VITALS: RESP 14; O2SAT 97
[2024-06-14 19:20] VITALS: BP 137/74; PULSE 97; RESP 14; TEMP 97.6; O2SAT 97
[2024-06-14] MEDS: PALIPERIDONE 3 MG TAB.ER.24 PO SCH (20:09)
[2024-06-14] MEDS: OLANZapine 5mg rapidly disint. tablet PO SCH (20:09)
[2024-06-15 07:30] VITALS: BP 95/77; PULSE 91; RESP 16; TEMP 97.3; O2SAT 93
[2024-06-15] MEDS: hyDRALAzine 10mg tablet PO SCH (08:00)
[2024-06-15 09:30] VITALS: BP 95/77; PULSE 91; RESP 16; TEMP 97.3; O2SAT 93
[2024-06-15 19:00] VITALS: BP 139/79; PULSE 97; RESP 16; TEMP 98; O2SAT 97
[2024-06-16 07:00] VITALS: RESP 16; O2SAT 94
[2024-06-16 08:00] VITALS: BP 138/76; PULSE 82; RESP 16; TEMP 97.6; O2SAT 94
[2024-06-16 19:00] VITALS: BP 123/74; PULSE 93; RESP 14; TEMP 97.2; O2SAT 97
[2024-06-16] MEDS: divalproex sodium 500mg tablet.DR PO SCH (20:31)
[2024-06-16] MEDS: OLANZapine 5mg rapidly disint. tablet PO SCH (20:31)
[2024-06-16] MEDS ORDERED: OLANZapine 5mg rapidly disint. tablet PO SCH (21:00)
[2024-06-17 07:00] VITALS: RESP 16; O2SAT 94
[2024-06-17 08:00] VITALS: BP 123/82; PULSE 77; RESP 16; TEMP 97; O2SAT 96
[2024-06-17 20:56] VITALS: BP 137/86; PULSE 98; RESP 20; TEMP 97.6; O2SAT 97
[2024-06-18 07:00] VITALS: RESP 20; O2SAT 98
[2024-06-18] MEDS: PALIPERIDONE 3 MG TAB.ER.24 PO SCH (07:23)
[2024-06-18 08:00] VITALS: BP 102/47; PULSE 76; RESP 20; TEMP 98; O2SAT 98
[2024-06-18 13:15] VITALS: BP 149/89; PULSE 95
[2024-06-18 19:00] VITALS: BP 155/101; PULSE 93; RESP 14; RESP 16; TEMP 98.2; O2SAT 98
[2024-06-19 07:00] VITALS: RESP 16; O2SAT 95
[2024-06-19 07:30] VITALS: BP 122/64; PULSE 73; RESP 16; TEMP 97.6; O2SAT 95
[2024-06-19 19:00] VITALS: RESP 18; O2SAT 96
[2024-06-19 20:00] VITALS: BP 129/66; PULSE 77; RESP 14; TEMP 97.5; O2SAT 96
[2024-06-20 07:00] VITALS: RESP 14; O2SAT 96
[2024-06-20 07:05] VITALS: BP 111/60; PULSE 66; RESP 14; TEMP 97.8; O2SAT 96
[2024-06-20 12:11] VITALS: BP 109/74; PULSE 88
[2024-06-20 19:00] VITALS: RESP 16; O2SAT 96
[2024-06-20 20:00] VITALS: BP 119/65; PULSE 85; RESP 16; TEMP 97.4; O2SAT 95
[2024-06-20] MEDS: divalproex sodium 500mg tablet.DR PO SCH (20:35)
[2024-06-21 07:30] VITALS: BP 102/52; PULSE 91; RESP 16; TEMP 98; O2SAT 95
[2024-06-21 19:00] VITALS: RESP 16; O2SAT 97
[2024-06-21 20:00] VITALS: BP 117/70; PULSE 92; RESP 16; TEMP 98.4; O2SAT 97
[2024-06-21] MEDS: divalproex sodium 500mg tablet.DR PO SCH (20:28)
[2024-06-21] MEDS: OLANZapine 5mg rapidly disint. tablet PO SCH (20:28)
[2024-06-21] MEDS ORDERED: OLANZapine 5mg rapidly disint. tablet PO SCH (21:00)
[2024-06-22 07:30] VITALS: BP 130/75; PULSE 94; RESP 16; TEMP 97.2; O2SAT 97
[2024-06-22 19:00] VITALS: RESP 18; O2SAT 100
[2024-06-22 20:00] VITALS: BP 134/83; PULSE 98; RESP 18; TEMP 98.3; O2SAT 100
[2024-06-22] MEDS: PALIPERIDONE 3 MG TAB.ER.24 PO SCH (20:29)
[2024-06-23 07:00] VITALS: RESP 16; O2SAT 97
[2024-06-23 08:00] VITALS: BP 151/84; PULSE 76; RESP 16; TEMP 98; O2SAT 97
[2024-06-23] MEDS ORDERED: ATOR20TA66 PO (08:23)
[2024-06-23] MEDS ORDERED: OLAN5TAB29 PO (08:23)
[2024-06-23] MEDS ORDERED: hyDRALAzine tablet PO (08:23)
[2024-06-23] MEDS ORDERED: METF-1203 PO (08:23)
== END 2024-06-23 11:57 | disposition home or self-care (01) | DRG 750 ==
LOC: ER 15:51 → ADULT MH 06-05 01:30
PROVIDERS: ADMIT Psychiatry & Neurology Psychiatry; ATTEND Psychiatry & Neurology Psychiatry
PROC: GZHZZZZ Group Psychotherapy (ICD-10-PCS; principal; 2024-06-10)
PROC: GZ51ZZZ Individual Psychotherapy, Behavioral (ICD-10-PCS; 2024-06-10)
DX: F25.9 Schizoaffective disorder, unspecified (principal); F05 Delirium due to known physiological condition; E11.9 Type 2 diabetes mellitus without complications; D72.829 Elevated white blood cell count, unspecified; E78.5 Hyperlipidemia, unspecified; F31.9 Bipolar disorder, unspecified; I10 Essential (primary) hypertension; Z20.822 Contact with and (suspected) exposure to COVID-19; N39.0 Urinary tract infection, site not specified; Z88.0 Allergy status to penicillin; Z88.8 Allergy status to other drugs, medicaments and biological substances
CPT/HCPCS: 36415; 80048; 80053; 80061; 80164; 80305; 81001; 82948; 83036; 83605; 84145; 84443; 85007; 85025; 87081; 87088; 87811; 96372; 99285; J1885; J7030; Q0177